=== PATIENT | male | born 1945 | race Caucasian/White ===

== ENCOUNTER 2017-08-29 11:18 | Inpatient (IN) | payer MEDICARE ==
[2017-08-29] MEDS ORDERED: Sodium Chloride 0.9% 1,000 ML IV ONE (11:34)
--- NOTE | 2017-08-29 11:54 | ED Physician Chart ---
ED Chief Complaint/HPI - Patient Information Date Seen:: 08/29/17 Time Seen:: 11:35 Chief Complaint:: Abdominal Pain History of Present Illness:: onset x one day of intermittent, crampy, diffuse Abd. Pain with KUB showing Air- Fluid Levels and Ileus; pt denies trauma, H/As, neck pain, C/P, SOB. A/N/V/D/C, fever, chills, or urinary s/s Allergies:: Allergies Allergy/AdvReac Type Severity Reaction Status Date / Time cyclosporine Allergy Verified 08/29/17 11:35 tramadol Allergy Verified 08/29/17 11:35 Vitals:: Vital Signs - 8 hr 08/29/17 11:39 Temp 98.6 F HR 112 RR 30 BP 80/55 O2 Sat % 98 Historian:: Patient, EMS Review:: Nurse's Note Reviewed, EMS run form Reviewed ED Review of Systems - Review of Systems General/Constitutional: No fever, No chills, No weight loss, No weakness, No diaphoresis, No edema, No loss of appetite Skin: No skin lesions, No rash, No bruising Head: No headache, No light-headedness Eyes: No loss of vision, No pain, No diplopia ENT: No earache, No nasal drainage, No sore throat, No tinnitus Neck: No neck pain, No swelling, No thyromegaly, No stiffness, No mass noted Cardio Vascular: No chest pain, No palpitations, No PND, No orthopnea, No edema Pulmonary: SOB, Cough, No sputum, Wheezing GI: Nausea, Vomiting, Diarrhea, Pain, No melena, No hematochezia, No constipation, No hematemesis G/U: No dysuria, No frequency, No hematuria, No nacturia Musculoskeletal: No bone or joint pain, No back pain, No muscle pain Endocrine: No polyuria, No polydipsia Psychiatric: No prior psych history, No depression, No anxiety, No suicidal ideation, No homicidal ideation, No auditory hallucination, No visual hallucination Hematopoietic: No bruising, No lymphadenopathy Allergic/Immuno: No urticaria, No angioedema Neurological: No syncope, Focal symptoms, Weakness, Paresthesia, No headache, No seizure, No dizziness, No confusion, No vertigo ED Past Medical History - Past Medical History Obtainable: Yes Past Medical History: HTN, Asthma/COPD, Dyslipidemia, Arthritis, Other (ALS; Respiratory Failure) Family History: Diabetes Melitus, HTN Social History: Non Smoker, No Alcohol, No Drug Use, Single, Care Facility Surgical History: Cholecystectomy (Liver Transplant), PEG/GTube, other ( Tracheostomy; Liver transplant) Psychiatricy History: None Medication: Reviewed ED Physical Exam - Physical Examination General/Constitutional: Awake, Well-developed, well-nourished, Alert, No distress, GCS 15, Non-toxic appearing, Ambulatory Head: Atraumatic Eyes: Lids, conjuctiva normal, PERRL, EOMI Skin: Nl inspection, No rash, No skin lesions, No ecchymosis, Well hydrated, No lymphadenopathy ENMT: External ears, nose nl, TM canals nl, Nasal exam nl, Lips, teeth, gums nl , Oropharynx nl, Tonsils nl Neck: Nontender, Full ROM w/o pain, No JVD, No nuchal rigidity, No bruit, No mass, No stridor Respiratory: Nl effort/Exclusion, Clear to Auscultation, No Wheeze/Rhonchi/Rales Other Respiratory comments:: pt on Ventilator Cardio Vascular: RRR, No murmur, gallop, rubs, NL S1 S2, Carotid/Femoral/Distal pulses equal bilaterally GI: No tenderness/rebounding/guarding, No organomegaly, No hernia, Normal BS's, Nondistended, No mass/bruits, No McBurney tenderness Other GI comments:: + G-Tube : No CVA tenderness Extremities: No tenderness or effusion, Full ROM, normal strength in all extremities, No edema, Normal digits & nails Neuro/Psych: Alert/oriented, DTR's symmetric, Judgement/insight normal, Mood normal Other Neuro/Psych comments:: pt is non-verbal Misc: Normal back, No paraspinal tenderness ED Labs/Radiology/EKG Results - Lab Results Comments:: WBC: 53.5 - Radiology Results Comments:: CXR: + Infiltrate - EKG Interpretations EKG Time:: 11:44 Rate & Rhythm: 117; ST Comments:: non-specific st-t changes ED Septic Shock - . Is Septic Shock (SBP<90, OR Lactate>4 mmol\L) present?: No - <6hrs of presentation: Vital Signs: Vital Signs - 8 hr 08/29/17 11:39 Temp 98.6 F HR 112 RR 30 BP 80/55 O2 Sat % 98 ED Reassessment (Disposition) - Reassessment Reassessment Condition:: Improved - Diagnosis Diagnosis:: Pneumonia; Leukocytosis; Dehydration; Tachycardia; Respiratory Failure; ALS; Sepsis; Abdominal Pain; Ileus; SBO; Thrombocythemia - Aftercare/Follow up Instructions Aftercare/Follow-Up Instructions:: Counseled pt regarding lab results/diagnosis & need follow up, Counseled pt & family regarding lab results/diagnosis & need follow up - Patient Disposition Discharge/Transfer:: Acute Care w/in this hosp Accepting Physician:: Dr. Roque Time Called:: 1215 Time Responded:: 12:15 Admitted to:: ICU Spoke to:: Dr. Roque Admitting Medical Physician:: Dr. Roque Condition at Disposition:: Stable, Improved
[2017-08-29 11:59] LABS: RED CELL DISTRIBUTION WIDTH 15.8 % (11.5-20.0)
[2017-08-29 12:06] LABS: HEMATOCRIT 36.8 % (41.0-60); HEMOGLOBIN 12.4 gm/dL (12-16); MEAN CELL VOLUME 83.1 fl (80-99); MEAN CORPUSCULAR HEMOGLOBIN 28.1 pg (27.0-31.0); MEAN CORPUSCULAR HGB CONC 33.8 pg (28.0-36.0); MEAN PLATELET VOLUME 8.4 fl; PLATELET COUNT 453 Th/cmm (150-400); RED BLOOD COUNT 4.42 Mil/cmm (3.80-5.80)
[2017-08-29 12:07] LABS: LYMPHOCYTE ABSOLUTE 2.5 Th/cmm (1.5-3.0); MONOCYTE ABSOLUTE 0.8 Th/cmm (0.3-1.0); NEUTROPHILE ABSOLUTE 50.2 Th/cmm (1.8-8.0)
[2017-08-29 12:08] LABS: WHITE BLOOD COUNT 53.5 Th/cmm (4.8-10.8)
[2017-08-29] MEDS ORDERED: cefTRIAXone 1 GM in Sodium Chloride 0.9% 50 ML IV ONE (12:16)
[2017-08-29 12:25] LABS: ALB/GLOB RATIO 0.9 (1.0-1.8); ALBUMIN 2.9 gm/dL (4.2-5.5); ANION GAP 21.8 (7.0-16.0); BILIRUBIN,TOTAL 0.7 mg/dL (0.3-1.0); CALCIUM SERUM 9.6 mg/dL (8.6-10.3); CARBON DIOXIDE 18.8 mEq/L (21.0-31.0); CREATININE - SERUM 2.4 mg/dL (0.7-1.3); GFR AFRICAN-AMERICAN 34.6 ml/min (>90); GFR NON AFRICAN-AMERICAN 28.6 ml/min; POTASSIUM SERUM 5.6 mEq/L (3.5-5.1); TOTAL PROTEIN,SERUM 6.3 gm/dL (6.0-8.3)
[2017-08-29 12:26] LABS: AMYLASE SERUM 29 U/L (29-103); BAND NEUTROPHILE 21 % (0-10); LIPASE 4 U/L (11-82); LYMPHOCYTE 3 % (20-50); MONOCYTE 6 % (2-10); NEUTROPHILS 70 % (40-80); TOTAL CELLS COUNTED 100
[2017-08-29 12:27] LABS: INR 0.98 (0.5-1.4); PROTHROMBIN TIME (TEST) 10.2 SECONDS (9.5-11.5)
--- NOTE | 2017-08-29 12:47 | Diagnostic Imaging Report ---
CT abdomen and pelvis without intravenous contrast Indication: Abdominal pain Comparison: None, Technique: Axial images were obtained from the lung bases to the bilateral proximal femurs without IV contrast. Coronal reconstructions were made. total DLP: 868, CTDI14.4 FINDINGS: Bibasilar infiltrates and mild consolidative changes are noted. There is a 4 mm nodular opacity of the right lung base (image 10, series 5). Additional nonspecific 2 mm nodular opacity right lung base is also noted. Assessment of the solid organs is limited due to lack of IV contrast. There is nonspecific calcification along the IVC border. No evidence of focal hepatic or splenic lesions. Pancreatic gland atrophy is noted. No focal adrenal lesions. Nonspecific bilateral perinephric inflammatory changes are noted. Urinary bladder is collapsed containing pockets of gas and Uribe catheter. Mild surrounding inflammatory changes are noted. There is a distention of the stomach. The percutaneous gastric feeding tube is noted. There is diffuse large bowel wall thickening. Mild inflammatory changes is also seen surrounding the large bowel greatest along the descending and transverse colon region. Trace free fluid is noted. No free air. Diffuse atherosclerosis is noted. Nonspecific inflammatory changes of left lung region are noted. Degenerative changes of the spine and pelvis are noted. IMPRESSION: Diffuse large bowel wall thickening with surrounding inflammatory changes most likely due to diffuse colitis. Trace free fluid is noted. No evidence of free air. Clinical correlation and follow-up is recommended. Distended stomach with air-fluid level. Gastrostomy feeding tube is also noted. Uribe catheter pockets of gas in the urinary bladder. Surrounding inflammatory changes are probably related to patient's large bowel disease/colitis. Bibasilar infiltrate/pneumonia Diffuse atherosclerosis. Small right lung base nodules measuring up to 4 mm. Findings are nonspecific and may be due to previous infectious or inflammatory process. Correlation with old exams be helpful for comparison. Follow-up is suggested.
--- NOTE | 2017-08-29 12:48 | Diagnostic Imaging Report ---
CHEST X-RAY: AP view INDICATION: pain COMPARISON: None FINDINGS: Tracheostomy tube is noted. Low lung the lungs are seen with increased bibasilar lung markings. No focal consolidation or effusions. Heart size is within normal limits. Atherosclerosis is noted. Skinfolds are noted. Degenerative changes of spine are noted. IMPRESSION: Low lung volume with increased bibasilar lung markings favoring atelectatic changes. No focal consolidation is identified. Atherosclerotic vascular disease.
[2017-08-29 13:31] LABS: URINE MICROSCOPIC INDICATED? YES; URINE SOURCE CLEAN C
[2017-08-29 13:34] LABS: URINE BILIRUBIN MODERATE (NEGATIVE); URINE BLOOD NEGATIVE (NEGATIVE); URINE GLUCOSE (UA) NEGATIVE (NEGATIVE); URINE KETONE NEGATIVE (NEGATIVE); URINE LEUKOCYTE ESTERASE MODERATE (NEGATIVE); URINE NITRATE NEGATIVE (NEGATIVE); URINE PH 8.5 (4.6 - 8.0); URINE PROTEIN 100 mg/dL (NEGATIVE); URINE UROBILINOGEN 0.2 E.U./dL (0.2 - 1.0)
[2017-08-29 13:37] LABS: URINE CLARITY HAZY (CLEAR); URINE COLOR YELLOW
[2017-08-29] MEDS ORDERED: Mag Sulfate 2gm/50mL Premix 2 GM/50 ML BAG IV PRN (13:42)
[2017-08-29] MEDS ORDERED: Morphine Sulfate 2 mg/mL 1mL Syr IVP PRN (13:42)
[2017-08-29 13:50] LABS: URINE BACTERIA MANY /hpf (NONE SEEN); URINE EPITHELIAL CELLS FEW /lpf (FEW); URINE WBC 50-100 /hpf (0-5)
[2017-08-29] MEDS ORDERED: Azithromycin 500 MG in Sodium Chloride 0.9% 250 ML IV ONE (14:00)
[2017-08-29] MEDS ORDERED: Sodium Chloride 0.9% 1,000 ML IV SCH (14:27)
[2017-08-29] MEDS ORDERED: Vancomycin HCl 1.5 GM in Sodium Chloride 0.9% 500 ML IV ONE (14:45)
[2017-08-29 15:06] VITALS: BP 69/39
[2017-08-29 15:12] LABS: pH 7.39 (7.35-7.45)
[2017-08-29] MEDS ORDERED: Albuterol/Ipratropium Neb 3 ML AERS HHN PRN (16:24)
[2017-08-29] MEDS ORDERED: Magnesium Hydroxide (MOM) 30 mL UDC PO PRN (16:28)
[2017-08-29] MEDS ORDERED: Lactulose 10 Gm/15 mL 30mL UDC PO ONE (16:30)
[2017-08-29] MEDS: Piperacillin/Tazobact 2.25 gm in 0.9% NS 50 ML IV SCH ×2 (17:58→23:39)
[2017-08-29] MEDS: Vancomycin HCL 250 mg /10mL UDC PO SCH ×2 (18:28→21:49)
[2017-08-29 18:35] LABS: A1C % 5.8 % (4.0-6.0)
[2017-08-29] MEDS: Budesonide 0.5 Mg/2 mL Ud HHN SCH (19:05)
[2017-08-29] MEDS: metroNIDAZOLE 500mg/NS 100mL 500 MG/100 ML BAG IV SCH (21:47)
[2017-08-29] MEDS: Chlorhexidine Gluconate 0.12% 15mL Mouthwash MM SCH (21:49)
[2017-08-29] MEDS ORDERED: Norepinephrine 4 mg/4mL Vial IV ONE (23:45)
[2017-08-30 04:54] LABS: HEMOGLOBIN 12.6 gm/dL (12-16)
[2017-08-30 04:55] LABS: ALB/GLOB RATIO 0.8 (1.0-1.8); ALBUMIN 2.1 gm/dL (4.2-5.5); ANION GAP 18.3 (7.0-16.0); BILIRUBIN,TOTAL 0.9 mg/dL (0.3-1.0); CALCIUM SERUM 8.3 mg/dL (8.6-10.3); CREATININE - SERUM 2.8 mg/dL (0.7-1.3); GFR NON AFRICAN-AMERICAN 23.9 ml/min; TOTAL PROTEIN,SERUM 4.7 gm/dL (6.0-8.3)
[2017-08-30 04:58] LABS: BASOPHILE ABSOLUTE 0.7 Th/cumm (0-0.2); EOSINOPHILE ABSOLUTE 0.5 Th/cmm (0.1-0.4); HEMATOCRIT 36.9 % (41.0-60); LYMPHOCYTE ABSOLUTE 3.2 Th/cmm (1.5-3.0); MEAN CORPUSCULAR HEMOGLOBIN 28.9 pg (27.0-31.0); MEAN PLATELET VOLUME 9.6 fl; MONOCYTE ABSOLUTE 0.3 Th/cmm (0.3-1.0); NEUTROPHILE ABSOLUTE 68.8 Th/cmm (1.8-8.0); PLATELET COUNT 440 Th/cmm (150-400); RED BLOOD COUNT 4.35 Mil/cmm (3.80-5.80); RED CELL DISTRIBUTION WIDTH 15.8 % (11.5-20.0)
[2017-08-30] MEDS: metroNIDAZOLE 500mg/NS 100mL 500 MG/100 ML BAG IV SCH (05:00)
[2017-08-30 05:05] LABS: WHITE BLOOD COUNT 73.5 Th/cmm (4.8-10.8)
[2017-08-30] MEDS ORDERED: DOPamine 400 MG/250 ML BAG IV ONE (05:05)
[2017-08-30 05:22] LABS: CARBON DIOXIDE 9.9 mEq/L (21.0-31.0); POTASSIUM SERUM 7.2 mEq/L (3.5-5.1)
[2017-08-30 05:23] LABS: TOTAL CELLS COUNTED 100
[2017-08-30 05:24] LABS: BAND NEUTROPHILE 28 % (0-10); LYMPHOCYTE 10 % (20-50); MONOCYTE 3 % (2-10); NEUTROPHILS 59 % (40-80)
[2017-08-30] MEDS ORDERED: Norepinephrine 4 mg/4mL Vial IV ONE ×2 (05:27→07:37)
[2017-08-30] MEDS: DOPamine 400 MG/250 ML BAG IV PRN ×2 (05:30→07:47)
[2017-08-30] MEDS: Piperacillin/Tazobact 2.25 gm in 0.9% NS 50 ML IV SCH (06:03)
[2017-08-30] MEDS: Budesonide 0.5 Mg/2 mL Ud HHN SCH (07:15)
--- NOTE | 2017-08-30 07:36 | Diagnostic Imaging Report ---
CHEST X-RAY: AP view INDICATION: PICC line placement COMPARISON: 08/29/2017 FINDINGS: Tracheostomy tube is stable. Right PICC line is seen with tip in the SVC. Suboptimal lung volumes are seen with increased bibasilar lung markings. No focal consolidation identified. Chronic changes are noted. Heart size is normal. IMPRESSION: Interval right PICC line placement with tip in the SVC Suboptimal lung volumes with mild increased bibasilar lung markings favoring atelectatic changes. No focal consolidations identified.
[2017-08-30] MEDS ORDERED: Phenylephrine HCl 50 MG in Sodium Chloride 0.9% 250 ML IV SCH (08:00)
[2017-08-30] MEDS: Chlorhexidine Gluconate 0.12% 15mL Mouthwash MM SCH (08:00)
[2017-08-30] MEDS ORDERED: Albumin 25% 25gm/100mL 25 GM/100 ML BTL IV ONE (08:47)
[2017-08-30] MEDS ORDERED: Non-Formulary Item 1 EA (Amino Acids/Protein Hydrolys [Pro-Stat Sugar Free Liquid] 30 ML) GT SCH (09:00)
[2017-08-30] MEDS: Vancomycin HCL 250 mg /10mL UDC PO SCH (09:10)
--- NOTE | 2017-08-30 10:02 | History & Physical ---
ADMIT DATE: 08/29/2017 CHIEF COMPLAINT: Very high white count. HISTORY OF PRESENT ILLNESS: The patient is a 72-year-old male who is bedbound. He has history of stroke, chronic respiratory failure, and dysphagia. He was found to have very high white count and fevers as well. He was sent to the hospital from the [facility] facility where he was found to have sepsis, aspiration pneumonia, and UTI. He has been on multiple antibiotics. He is on Levophed, dopamine, and phenylephrine drip as well. He is in the ICU. PAST MEDICAL HISTORY: Significant for CVA, chronic respiratory failure, dysphagia. PAST SURGICAL HISTORY: Positive for tracheostomy, G-tube placement. FAMILY HISTORY: Noncontributory. ALLERGIES: He is allergic to cyclosporine and tramadol. FAMILY HISTORY: Noncontributory. MEDICATIONS: [facility] medications reviewed and reconciled. REVIEW OF SYSTEMS: GENERAL: Positive recent worsening and fatigue. HEENT: No recent head trauma or change in vision, taste, hearing, or smell. Oral: No recent pain or discharge. He does have a significant amount of secretions orally. NECK: He has history of tracheostomy. ABDOMEN: No recent pain or distention. He does have history of a G-tube. GASTROINTESTINAL: He has history of dysphagia and G-tube. SKIN: No recent rashes. PSYCHIATRIC: No history of psychosis, hallucination. NEUROLOGIC: He is bedbound. He has history of stroke. RESPIRATORY: He has history of chronic respiratory failure. EXTREMITIES: He does have a history of edema. MUSCULOSKELETAL: He is no involuntary muscle movements. PHYSICAL EXAMINATION: VITAL SIGNS: Temperature 96.8 degrees, heart rate is 111, respiration is in the 20s to 30s, blood pressure 73/41. Currently, no pain. GENERAL: No acute distress. He is awake, but not alert. EYES: No discharge. Unable to follow commands. Oral: He has slight amount of secretions, but no bleeding. NECK: Tracheostomy is intact. CARDIOVASCULAR: He is in sinus tachycardia. ABDOMEN: Nontender, nondistended. G-tube is intact. SKIN: No rashes. PSYCHIATRIC: No psychosis or hallucinations. NEUROLOGIC: He is bedbound. RESPIRATORY: Bilateral rales and congestion. LABORATORY DATA: UA is positive for UTI. White count of 53.5, hemoglobin is 12.4, platelet count is 453,000. ABG shows pH of 7.39, pO2 135. INR is 0.98. Sodium 126, potassium ___, chloride 104, bicarbonate 9.9, BUN 71, creatinine is 2.8. Blood sugar has been in the 220s and sodium is 126 as mentioned above. ASSESSMENT/PLAN: 1. Septic shock. 2. Colitis. 3. Bilateral aspiration pneumonia. 4. Chronic respiratory failure. 5. Dysphagia. 6. Diabetes mellitus, out of control. 7. Urinary tract infection. 8. Moderate malnutrition. 9. Hyponatremia. 10. Vasomotor nephropathy. PLAN: The patient is on vancomycin and Zosyn. ID has added Flagyl. He is on multiple drips including Levophed, dopamine, and Andre-Synephrine as well. Cardiology along with Pulmonary and ID has been consulted. The patient is also in renal failure. He holds a poor prognosis. I will discuss changing the code status to perhaps DNR with the family. The visited earlier. I will try to get a hold of her again. The patient holds a poor prognosis. Follow up an ABG. White count is elevated. Lactic acid is elevated as well. I will consult Nephrology for renal failure as well. JOB# [id number]
--- NOTE | 2017-08-30 10:48 | Consultation ---
DATE OF CONSULTATION: 08/29/2017 PULMONARY AND CRITICAL CARE CONSULTATION REASON FOR CONSULTATION: Sepsis with respiratory failure with possibly pneumonia. CONSULT NOTE: This is a first admission of this 72-year-old gentleman who is on a chronic vent at a longterm facility apparently presumably from the ALS that was ____ and was doing okay until a couple of hours back when he started having abdominal pain, elevated leukocytosis and questionable more obtunded. Subsequently, the patient was brought up here as the patient's chest x-ray including elevated white count, I was asked to see this patient for further care and necessary treatment. The patient's almost close to 2000 mL of free fluid since the patient came in. PAST MEDICAL HISTORY: Chronic ventilator dependent, history of possible , and also history of chronic vent dependence, history of G-tube. Other history is very limited. PHYSICAL EXAMINATION: GENERAL: This is fairly well healthy looking gentleman, awake, in no respiratory distress except for intermittent discomfort. Much of the history is not available. VITAL SIGNS: Temperature is 96.5, blood pressure is ranging from 70-80. He is about to start on Levophed. No respiratory distress, etc. HEENT: Head is essentially unremarkable. Pupils appear to be equal and reacting to light. Conjunctivae are slightly pallor. Oral cavity shows intact teeth. Small oropharyngeal opening. NECK: Supple. Noted tracheostomy tube in situ, otherwise unremarkable. CHEST: Shows occasional secretory noise with diminished air entry. HEART: Regular. ABDOMEN: Shows a G-tube with ___, appears to be generalized tenderness, but no definite guarding. Bowel sounds are okay. EXTREMITIES: Shows no cyanosis or clubbing. LABORATORY DATA: The patient's white count is 53,000, hemoglobin 12.4. Blood gases pO2 135 on 40% of oxygen on assist control mode of ventilator. The patient's potassium is 5.6, creatinine is 2.4, BUN is 62, lactic acid is 3.4, alkaline phosphatase is high. Urine does show many bacteria and moderately high bilirubin. IMAGING STUDIES: The patient's chest x-ray shows some haziness at the bases and trach tube site looked okay and a CT of lower portion of the chest is obtained that shows bibasilar, and bronchogram. CT of the abdomen is suggestive of possibly constipation with areas of very minimal air fluid level. IMPRESSION: The patient has: 1. Acute pneumonia, on a vent, associated. 2. Pain could be because of pleural base and the upper abdomen though underlying ischemic bowel and/or possibly C. diff colitis cannot be totally ruled out, associated with sepsis and hypotension. PLANS AND SUGGESTIONS: I agree with fluid challenge. I agree with Levophed. If no response, get a payne-culture whole body including C. diff, following which may be laxative may be given, and antibiotic will be managed by ID and continue rest of the treatment and I will be glad to follow along with you. JOB# [id number]
[2017-08-30] MEDS ORDERED: Albuterol/Ipratropium Neb 3 ML AERS HHN SCH (13:00)
[2017-08-30] MEDS ORDERED: Pneumococcal Vaccine 0.5 mL Vial IM ONE (15:22)
--- NOTE | 2017-08-30 19:20 | Discharge Summary ---
DATE OF DISCHARGE: 08/30/2017 CAUSE OF ADMISSION: The patient is a 72-year-old male who is bedbound with history of stroke and [facility]. He was found to be more confused than usual and lethargic and very high white count, was sent to the hospital. In the hospital, he was found to be in septic shock. ADMITTING DIAGNOSES: 1. Septic shock. 2. Colitis. 3. Bilateral aspiration pneumonia. 4. Chronic respiratory failure. 5. Dysphagia. 6. Diabetes mellitus, out of control. 7. Urinary tract infection. 8. Moderate malnutrition. 9. Vasomotor nephropathy. 10. Hyponatremia. DISCHARGE DIAGNOIS: Cardiopulmonary arrest. SUMMARY OF HOSPITAL COURSE: The patient was admitted to ICU. He was maxed out on Levophed, dopamine and Andre-Synephrine drip. I met with the and discussed poor prognosis. She was in the process of making him a DNR. Shortly after the patient coded and the morning of 08/30/2017. Prognosis poor. Physical exam and labs as charted. CONSULTS: Nephro, ID and Pulmonary were consulted, but unfortunately the patient before being seen. JOB# [id number]
== END 2017-08-30 09:06 | disposition expired | DRG 871 ==
LOC: ER 11:18 → ICU 13:05
PROVIDERS: ADMIT General Practice; ATTEND General Practice
PROC: 5A1935Z Respiratory Ventilation, Less than 24 Consecutive Hours (ICD-10-PCS; principal; 2017-08-29)
DX: A41.9 Sepsis, unspecified organism (principal); R65.21 Severe sepsis with septic shock; J69.0 Pneumonitis due to inhalation of food and vomit; N17.0 Acute kidney failure with tubular necrosis; J95.851 Ventilator associated pneumonia; K56.609 Unspecified intestinal obstruction, unspecified as to partial versus complete obstruction; J96.10 Chronic respiratory failure, unspecified whether with hypoxia or hypercapnia; E44.0 Moderate protein-calorie malnutrition; N39.0 Urinary tract infection, site not specified; E87.1 Hypo-osmolality and hyponatremia; K56.7 Ileus, unspecified; Z94.4 Liver transplant status; Z99.11 Dependence on respirator [ventilator] status; I46.9 Cardiac arrest, cause unspecified; J44.9 Chronic obstructive pulmonary disease, unspecified; R13.10 Dysphagia, unspecified; K52.9 Noninfective gastroenteritis and colitis, unspecified; I10 Essential (primary) hypertension; E78.5 Hyperlipidemia, unspecified; M19.90 Unspecified osteoarthritis, unspecified site; E86.0 Dehydration; Y82.8 Other medical devices associated with adverse incidents; Y83.8 Other surgical procedures as the cause of abnormal reaction of the patient, or of later complication, without mention of misadventure at the time of the procedure; D47.3 Essential (hemorrhagic) thrombocythemia; E11.9 Type 2 diabetes mellitus without complications; Z93.0 Tracheostomy status; Z93.1 Gastrostomy status; Z86.73 Personal history of transient ischemic attack (TIA), and cerebral infarction without residual deficits; Z88.8 Allergy status to other drugs, medicaments and biological substances; Z74.01 Bed confinement status; Z83.3 Family history of diabetes mellitus; Z82.49 Family history of ischemic heart disease and other diseases of the circulatory system; Z90.49 Acquired absence of other specified parts of digestive tract; Y92.89 Other specified places as the place of occurrence of the external cause
CPT/HCPCS: 36415-UA; 36600-90; 71045-TC; 80053-TC; 80061-TC; 81001-TC; 82150-TC; 82550-TC; 82803-TC; 82948-90; 83036-90; 83605; 83690-TC; 83880-TC; 84443-TC; 84484-TC; 85007-TC; 85025-TC; 85027-TC; 85610-TC; 85730-TC; 87070; 87086-90; 87230-TC; 90799; 92950; 93005; 94002; 94003; 94760; J0456; J0696; J1265; J1644; J2060; J2270; J2370; J2543; J3370; J7030; J7040; P9046; X6452; Z7610